=== PATIENT | female | born 1965 | race Caucasian/White ===

== ENCOUNTER 2017-11-12 08:30 | Day surgery (SDC) | payer BC ==
[~2017-11-12 08:30] MED LIST: Lactated Ringers 1,000 ML IV SCH; Sodium Chloride 0.9% 5 ML Syringe FLUSH PRN
[2017-11-12] MEDS ORDERED: Midazolam 1 MG/ML 2 ML SDV ONE (09:18)
[2017-11-12] MEDS ORDERED: fentaNYL 100 MCG/2 ML SDV ONE (09:18)
[2017-11-12] MEDS ORDERED: Propofol 200 MG/20 ML SDV ONE ×2 (09:19→10:36)
[2017-11-12] MEDS ORDERED: EPINEPHrine 1:10,000 1 MG/10 ML Syringe ONE (09:59)
[2017-11-12] MEDS ORDERED: Midazolam 1 MG/ML 2 ML SDV IV ONE (10:15)
[2017-11-12] MEDS ORDERED: fentaNYL 100 MCG/2 ML SDV IV ONE (10:15)
[2017-11-12] MEDS ORDERED: Propofol 200 MG/20 ML SDV IV ONE (10:15)
--- NOTE | 2017-11-12 10:53 | PCM.PRNOTE ---
- Free Text/Narrative Note: INFORMED CONSENT: Patient is here today for elective upper GI endoscopy. All aspects of this procedure have been discussed with the patient. All possible complications also, including possibility of perforation, infection, pain, bleeding, numbness of the throat, swallowing difficulty and unknown complications. In the event of perforation the patient may need surgical exploration to repair the defect. The patient understands fully well. Patient did not have any further questions for me at the end of my interview. The patient wishes for me to proceed. INSTRUMENT USED: Video gastroscope ANESTHESIA: [MAC] Indication: Iron deficiency anemia ASA CLASSIFICATION: [2] PROCEDURE PERFORMED: [Upper GI endoscopy and biopsy] PHARYNX: Normal. ESOPHAGUS: Normal. Proximal: Normal. Middle: Normal. Lower: Normal. GE Junction: Mild GERD is noted. Squamocolumnar junction at 35 cm. Biopsies taken.. STOMACH: Normal. Cardia: Normal. Fundus: Normal. Lesser Curvature: Normal. Greater Curvature: Normal. Antrum: Normal. Pylorus: Normal. DUODENUM: Normal. First Part: Normal. Second Part: Normal. Third Part: Normal. RETROFLEXION: Normal. BIOPSY: None. TOLERANCE: Excellent. COMPLICATIONS: None. Final diagnosis: Mild GERD at the gastroesophageal junction. Biopsy taken. Report pending. Tolerance excellent. INFORMED CONSENT: Patient is here today for elective colonoscopy. All aspects of this procedure have been discussed with the patient. All possible complications also, including possibility of perforation, infection, pain, bleeding and unknown complications. In the event of perforation patient may need to have abdominal exploration, colon resection, colostomy and even was discussed. Anesthetic complications were handled by anesthesia department. The patient understands fully well. Patient did not have any further questions for me at the end of my interview. The patient wishes for me to proceed. PREOPERATIVE DIAGNOSIS/INDICATIONS: [Iron deficiency anemia, no source of upper GI bleeding.] POSTOPERATIVE DIAGNOSIS: [Negative colonoscopy] INSTRUMENT USED: Olympus videocolonoscope. ASA CLASSIFICATION: [2] ANESTHESIA: Continuous EKG, oximetry and intermittent blood pressure and respiratory monitoring were performed throughout the procedure. IV Versed and Fentanyl were administered. PROCEDURE PERFORMED: Colonoscopy POSITIONS OF PATIENT: Left lateral. RECTUM: Normal. SIGMOID COLON: Normal. DESCENDING COLON: Normal. SPLENIC FLEXURE: Normal. TRANSVERSE COLON: Normal. HEPATIC FLEXURE: Normal. ASCENDING COLON: Normal. CECUM: Normal. ILEOCECAL VALVE: Normal. BIOPSY: None. TOLERANCE: Excellent. COMPLICATIONS: None.
== END 2017-11-12 12:15 | disposition home or self-care (01) ==
LOC: KA.SDS 08:30
PROVIDERS: ATTEND Family Medicine
DX: K29.70 Gastritis, unspecified, without bleeding (principal); K21.9 Gastro-esophageal reflux disease without esophagitis; E03.9 Hypothyroidism, unspecified; F33.41 Major depressive disorder, recurrent, in partial remission; Z88.8 Allergy status to other drugs, medicaments and biological substances
CPT/HCPCS: 43239; 45378; J2250; J2704; J3010; J7120

== ENCOUNTER 2018-05-07 14:05 | Observation (INO) | payer BC ==
--- NOTE | 2018-05-07 14:42 | EDM.PDOC ---
ED HPI GENERAL MEDICAL PROBLEM - General Chief Complaint: Chest Pain Stated Complaint: chest pain Time Seen by Provider: 05/07/18 14:15 Source of Information: Reports: Patient History Limitations: Reports: No Limitations - History of Present Illness INITIAL COMMENTS - FREE TEXT/NARRATIVE: 52 YO WF presents to ER with complaints of chest pain which began this am after getting off work. Pt reports pain was left sided with radiation to left side of neck and left arm. Pt reports associated dizziness and nausea but denies shortness of breath or diaphoresis. Pt reports more pain with movement of neck and left arm. Pt denies any PMH of CAD but does have a significant FH of CAD ( dad and cousin-). Pt reports history of irregular heart rhythm approximately 10 years ago which required no interc=vention or medications. Onset: Today Onset Date: 05/07/18 Onset Time: 07:00 Duration: Day(s): (1) Location: Reports: Chest Quality: Reports: Ache Severity: Moderate Improves with: Reports: Rest Worsens with: Reports: Movement Associated Symptoms: Reports: Chest Pain, Nausea/Vomiting. Denies: Cough, Fever /Chills, Shortness of Breath, Syncope Left Chest Pain Score (Numeric/FACES): 7 - Related Data Allergies Allergy/AdvReac Type Severity Reaction Status Date / Time lidocaine Allergy Swelling Verified 11/12/17 08:56 Home Meds: Home Meds FLUoxetine [PROzac] 60 mg PO DAILY 11/11/17 [History] Ferrous Sulfate 200 mg PO DAILY 11/11/17 [History] Gabapentin [Neurontin] 300 mg PO TID 11/11/17 [History] Levothyroxine 150 mcg PO ACBREAKFAST 11/11/17 [History] Ezetimibe 10 mg PO DAILY 05/07/18 [History] Ketorolac [Toradol] 10 mg PO QID 05/07/18 [History] Pantoprazole Sodium 40 mg PO DAILY 05/07/18 [History] Suvorexant [Belsomra] 20 mg PO DAILY 05/07/18 [History] Past Medical History Cardiovascular History: Reports: High Cholesterol Other Respiratory History: URI Gastrointestinal History: Reports: GERD SAND WHEELER History: Reports: Endometriosis, Other (See Below) Other SAND WHEELER History: D&C, full hysterectomy, with ablasion Psychiatric History: Reports: ADD, Anxiety, Depression, Eating Disorders, Mood Swings Endocrine/Metabolic History: Reports: Hypothyroidism Hematologic History: Reports: B12 Deficiency - Infectious Disease History Infectious Disease History: Reports: Chicken Pox, Measles, Mumps - Past Surgical History HEENT Surgical History: Reports: Adenoidectomy, Tonsillectomy ED ROS GENERAL - Review of Systems Review Of Systems: See Below Constitutional: Reports: No Symptoms HEENT: Reports: No Symptoms Respiratory: Reports: No Symptoms Cardiovascular: Reports: Chest Pain, Lightheadedness Endocrine: Reports: No Symptoms GI/Abdominal: Reports: Nausea. Denies: Abdominal Pain : Reports: No Symptoms Musculoskeletal: Reports: Neck Pain, Arm Pain Skin: Reports: No Symptoms Neurological: Reports: No Symptoms Psychiatric: Reports: No Symptoms Hematologic/Lymphatic: Reports: No Symptoms Immunologic: Reports: No Symptoms ED EXAM, GENERAL - Physical Exam Exam: See Below Exam Limited By: No Limitations General Appearance: Alert, WD/WN, No Apparent Distress Eye Exam: Bilateral Eye: PERRL Throat/Mouth: Normal Inspection, Normal Lips, Normal Teeth, Normal Gums, Normal Oropharynx, Normal Voice, No Airway Compromise Head: Atraumatic, Normocephalic Neck: Normal Inspection, Supple, Non-Tender, Full Range of Motion Respiratory/Chest: No Respiratory Distress, Lungs Clear, Normal Breath Sounds, No Accessory Muscle Use, Chest Non-Tender Cardiovascular: Normal Peripheral Pulses, Regular Rate, Rhythm, No Edema, No Gallop, No JVD, No Murmur, No Rub GI/Abdominal: Normal Bowel Sounds, Soft, Non-Tender, No Organomegaly, No Distention, No Abnormal Bruit, No Mass Back Exam: Normal Inspection, Full Range of Motion, NT Extremities: Normal Inspection, Normal Range of Motion, Non-Tender, Normal Capillary Refill, No Pedal Edema Neurological: Alert, Oriented, CN II-XII Intact, Normal Cognition, Normal Gait, Normal Reflexes, No Motor/Sensory Deficits Psychiatric: Normal Affect, Normal Mood Skin Exam: Warm, Dry, Intact, Normal Color, No Rash Lymphatic: No Adenopathy EKG INTERPRETATION EKG Date: 05/07/18 Time: 14:19 Rhythm: NSR Rate (Beats/Min): 72 [place]: Normal P-Wave: Present QRS: Normal ST-T: Normal QT: Normal Comparison: NA - No Prior EKG Course - Vital Signs Last Recorded V/S: Last Vital Signs Temp 36.3 C 05/07/18 14:11 Pulse 77 05/07/18 14:11 Resp 16 05/07/18 14:11 BP 113/57 L 05/07/18 15:17 Pulse Ox 98 05/07/18 14:11 - Orders/Labs/Meds Orders: Active Orders 24 hr Category Date Time Status Patient Status Manage Transfer [TRANSFER] Routine ADT 05/07/18 15:40 Ordered Patient Status [ADT] Routine ADT 05/07/18 15:41 Ordered Bedrest Bathroom Privileges [RC] ASDIRECTED Care 05/07/18 15:41 Active Cardiac Monitoring [RC] . DIRECTED Care 05/07/18 14:29 Active Cardiac Monitoring [RC] CONTINUOUS Care 05/07/18 15:42 Active EKG Documentation Completion [RC] ASDIRECTED Care 05/07/18 14:30 Active Oxygen Therapy Adult [Oxygen Therapy, ED] [RC] Care 05/07/18 14:29 Active ASDIRECTED Oxygen Therapy [RC] PRN Care 05/07/18 15:41 Active Peripheral IV Care [RC] . DIRECTED Care 05/07/18 15:46 Active Pulse Oximetry [RC] PRN Care 05/07/18 15:42 Active VTE/DVT Education [RC] PER UNIT ROUTINE Care 05/07/18 15:41 Active Vital Signs [RC] Q4H Care 05/07/18 15:41 Active 2 Gram Sodium Diet [DIET] Diet 05/07/18 Dinner Active Chest 2V [CR] Stat Exams 05/07/18 14:29 Taken BASIC METABOLIC PANEL,BMP [CHEM] AM Lab 05/08/18 05:11 Ordered CBC WITH AUTO DIFF [HEME] AM Lab 05/08/18 05:11 Ordered MAGNESIUM [CHEM] AM Lab 05/08/18 05:11 Ordered TROPONIN I [CHEM] AM Lab 05/08/18 05:11 Ordered TROPONIN I [CHEM] Routine Lab 05/07/18 21:00 Ordered Acetaminophen [Tylenol] Med 05/07/18 15:41 Active 650 mg PO Q4H PRN Aspirin [Ecotrin] Med 05/08/18 09:00 Active 325 mg PO DAILY Morphine Med 05/07/18 15:41 Active 2 mg IVPUSH Q2H PRN Nitroglycerin [Nitro-Bid 2%] Med 05/07/18 16:00 Active 1 gm TOP Q6H Ondansetron [Zofran] Med 05/07/18 15:41 Active 4 mg IV Q4H PRN Sodium Chloride 0.9% [Syrex Flush] Med 05/07/18 15:41 Active 5 ml FLUSH Q8HR PRN Peripheral IV Insertion Adult [OM.PC] Routine Oth 05/07/18 15:41 Ordered Resuscitation Status Routine Resus Stat 05/07/18 15:41 Ordered EKG 12 Lead [EK] Routine Ther 05/07/18 14:29 Ordered Medication Orders Acetaminophen (Tylenol) 650 mg PO Q4H PRN PRN Reason: Pain (Mild 1-3)/fever Aspirin (Ecotrin) 325 mg PO DAILY ASHLY Morphine Sulfate (Morphine) 2 mg IVPUSH Q2H PRN PRN Reason: Pain (severe 7-10) Nitroglycerin (Nitro-Bid 2%) 1 gm TOP Q6H ASHLY Ondansetron HCl (Zofran) 4 mg IV Q4H PRN PRN Reason: Nausea/Vomiting Sodium Chloride (Syrex Flush) 5 ml FLUSH Q8HR PRN PRN Reason: Keep Vein Open Labs: Laboratory Tests 05/07/18 05/07/18 05/07/18 Range/Units 14:25 14:25 14:25 WBC 6.5 (5.0-10.0) 10^3/uL RBC 3.91 (3.80-5.50) 10^6/uL Hgb 10.5 L (12.0-16.0) g/dL Hct 32.2 L (37.0-47.0) % MCV 82.4 (82.0-92.0) fL MCH 26.8 L (27.0-31.0) pg MCHC 32.5 (32.0-36.0) g/dL RDW 18.2 H (11.5-14.5) % Plt Count 426 H (150-300) 10^3/uL MPV 7.1 L (7.4-10.4) fL Neut % (Auto) 58.9 (50.0-70.0) % Lymph % (Auto) 29.1 (20.0-40.0) % [place] % (Auto) 7.9 (2.0-8.0) % Eos % (Auto) 2.8 (1.0-3.0) % Baso % (Auto) 1.3 H (0.0-1.0) % Neut # (Auto) 3.8 (2.5-7.0) 10^3/uL Lymph # (Auto) 1.9 (1.0-4.0) 10^3/uL [place] # (Auto) 0.5 (0.1-0.8) 10^3/uL Eos # (Auto) 0.2 (0.1-0.3) 10^3/uL Baso # (Auto) 0.1 (0.0-0.1) 10^3/uL PT 9.2 (8.9-11.4) SEC INR 0.9 (0.9-1.1) APTT 23.5 (20.8-31.2) SEC Sodium 144 (136-145) mmol/L Potassium 3.7 (3.3-5.3) mmol/L Chloride 109 (98-115) mmol/L Carbon Dioxide 24.0 (21.0-32.0) mmol/L Anion Gap 14.7 (5-15) mmol/L BUN 20 (6-25) mg/dL Creatinine 0.90 (0.51-1.17) mg/dL Est Cr Clr Drug Dosing 61.71 mL/min Estimated GFR (MDRD) > 60 mL/min Glucose 97 mg/dL Calcium 8.6 L (8.7-10.3) mg/dL Total Bilirubin 0.2 (0.2-1.0) mg/dL AST 22 (15-37) U/L ALT 24 (12-78) U/L Alkaline Phosphatase 85 (46-116) IU/L Creatine Kinase 233 (26-276) U/L CK-MB (CK-2) 2.20 (0.00-4.30) ng/mL Troponin I < 0.04 (0.00-0.070) ng/mL Total Protein 6.6 (6.4-8.2) g/dL Albumin 3.13 (3.00-4.80) g/dL Meds: Medications Generic Name Dose Route Start Last Admin Trade Name Freq PRN Reason Stop Dose Admin Acetaminophen 650 mg 05/07/18 15:41 Tylenol PO Q4H PRN Pain (Mild 1-3)/fever Aspirin 325 mg 05/08/18 09:00 Ecotrin PO DAILY ASHLY Morphine Sulfate 2 mg 05/07/18 15:41 Morphine IVPUSH Q2H PRN Pain (severe 7-10) Nitroglycerin 1 gm 05/07/18 16:00 Nitro-Bid 2% TOP Q6H ASHLY Ondansetron HCl 4 mg 05/07/18 15:41 Zofran IV Q4H PRN Nausea/Vomiting Sodium Chloride 5 ml 05/07/18 15:41 Syrex Flush FLUSH Q8HR PRN Keep Vein Open Discontinued Medications Generic Name Dose Route Start Last Admin Trade Name Freq PRN Reason Stop Dose Admin Aspirin 324 mg 05/07/18 14:49 05/07/18 15:07 Aspirin PO 05/07/18 14:50 324 mg ONETIME ONE Administration Morphine Sulfate 4 mg 05/07/18 15:24 05/07/18 15:35 Morphine IVPUSH 05/07/18 15:25 4 mg ONETIME ONE Administration Nitroglycerin 0.4 mg 05/07/18 14:49 05/07/18 15:17 Nitrostat SL 05/07/18 14:50 0.4 mg ONETIME ONE Administration Ondansetron HCl 4 mg 05/07/18 15:24 05/07/18 15:36 Zofran IVPUSH 05/07/18 15:25 4 mg ONETIME ONE Administration - Radiology Interpretation Free Text/Narrative:: CXR- NAD Departure - Departure Time of Disposition: 15:33 Disposition: Refer to Observation Condition: Fair Clinical Impression: Atypical chest pain Referrals: Allison Decker PA-C [Primary Care Provider] - Forms: ED Department Discharge - My Orders Last 24 Hours: My Active Orders 05/07/18 14:29 Cardiac Monitoring [RC] . DIRECTED Oxygen Therapy Adult [Oxygen Therapy, ED] [RC] ASDIRECTED Chest 2V [CR] Stat EKG 12 Lead [EK] Routine 05/07/18 14:30 EKG Documentation Completion [RC] ASDIRECTED 05/07/18 15:40 Patient Status Manage Transfer [TRANSFER] Routine 05/07/18 15:41 Patient Status [ADT] Routine Bedrest Bathroom Privileges [RC] ASDIRECTED Oxygen Therapy [RC] PRN VTE/DVT Education [RC] PER UNIT ROUTINE Vital Signs [RC] Q4H Acetaminophen [Tylenol] 650 mg PO Q4H PRN Morphine 2 mg IVPUSH Q2H PRN Ondansetron [Zofran] 4 mg IV Q4H PRN Sodium Chloride 0.9% [Syrex Flush] 5 ml FLUSH Q8HR PRN Peripheral IV Insertion Adult [OM.PC] Routine Resuscitation Status Routine 05/07/18 15:42 Cardiac Monitoring [RC] CONTINUOUS Pulse Oximetry [RC] PRN 05/07/18 15:46 Peripheral IV Care [RC] . DIRECTED 05/07/18 16:00 Nitroglycerin [Nitro-Bid 2%] 1 gm TOP Q6H 05/07/18 21:00 TROPONIN I [CHEM] Routine 05/07/18 Dinner 2 Gram Sodium Diet [DIET] 05/08/18 05:11 BASIC METABOLIC PANEL,BMP [CHEM] AM CBC WITH AUTO DIFF [HEME] AM MAGNESIUM [CHEM] AM TROPONIN I [CHEM] AM 05/08/18 09:00 Aspirin [Ecotrin] 325 mg PO DAILY - Assessment/Plan Last 24 Hours: My Active Orders 05/07/18 14:29 Cardiac Monitoring [RC] . DIRECTED Oxygen Therapy Adult [Oxygen Therapy, ED] [RC] ASDIRECTED Chest 2V [CR] Stat EKG 12 Lead [EK] Routine 05/07/18 14:30 EKG Documentation Completion [RC] ASDIRECTED 05/07/18 15:40 Patient Status Manage Transfer [TRANSFER] Routine 05/07/18 15:41 Patient Status [ADT] Routine Bedrest Bathroom Privileges [RC] ASDIRECTED Oxygen Therapy [RC] PRN VTE/DVT Education [RC] PER UNIT ROUTINE Vital Signs [RC] Q4H Acetaminophen [Tylenol] 650 mg PO Q4H PRN Morphine 2 mg IVPUSH Q2H PRN Ondansetron [Zofran] 4 mg IV Q4H PRN Sodium Chloride 0.9% [Syrex Flush] 5 ml FLUSH Q8HR PRN Peripheral IV Insertion Adult [OM.PC] Routine Resuscitation Status Routine 05/07/18 15:42 Cardiac Monitoring [RC] CONTINUOUS Pulse Oximetry [RC] PRN 05/07/18 15:46 Peripheral IV Care [RC] . DIRECTED 05/07/18 16:00 Nitroglycerin [Nitro-Bid 2%] 1 gm TOP Q6H 05/07/18 21:00 TROPONIN I [CHEM] Routine 05/07/18 Dinner 2 Gram Sodium Diet [DIET] 05/08/18 05:11 BASIC METABOLIC PANEL,BMP [CHEM] AM CBC WITH AUTO DIFF [HEME] AM MAGNESIUM [CHEM] AM TROPONIN I [CHEM] AM 05/08/18 09:00 Aspirin [Ecotrin] 325 mg PO DAILY Assessment:: 1. Left sided chest pain Plan: 1. Admit 23 hour obs- Chest pain- Discussed with Dr Brown 2. nitro/ASA/oxygen 3. supportive care
[2018-05-07] MEDS ORDERED: Aspirin 81 MG Tab.Chew PO ONE (14:49)
[2018-05-07] MEDS ORDERED: Nitroglycerin 0.4 MG Tab.SL SL ONE (14:49)
[2018-05-07 15:08] LABS: ANION GAP 14.7 mmol/L (5-15); CHLORIDE,CL 109 mmol/L (98-115); SODIUM,NA 144 mmol/L (136-145)
[2018-05-07] MEDS ORDERED: Morphine 4 MG/ML Syringe IVPUSH ONE (15:24)
[2018-05-07] MEDS ORDERED: Ondansetron 4 MG/2 ML SDV IVPUSH ONE (15:24)
[2018-05-07] MEDS ORDERED: Sodium Chloride 0.9% 5 ML Syringe FLUSH PRN (15:41)
[2018-05-07] MEDS ORDERED: Morphine 2 MG/ML Syringe IVPUSH PRN (15:41)
[2018-05-07] MEDS ORDERED: Ondansetron 4 MG/2 ML SDV IV PRN (15:41)
[2018-05-07] MEDS ORDERED: Nitroglycerin 0.4 MG Tab.SL SL PRN (17:22)
[2018-05-07] MEDS ORDERED: EPINEPHrine 1:10,000 1 MG/10 ML Syringe IVPUSH PRN (17:22)
[2018-05-07] MEDS ORDERED: Atropine 0.1 MG/ML 10 ML Syringe IVPUSH PRN (17:22)
[2018-05-07] MEDS: Nitroglycerin 2% Oint 1 GM UD Packet TOP SCH ×2 (17:44→22:17)
[2018-05-07] MEDS: Acetaminophen 325 MG Tab PO PRN (20:43)
[2018-05-08] MEDS: Acetaminophen 325 MG Tab PO PRN (02:55)
[2018-05-08] MEDS ORDERED: Pantoprazole 40 MG Tab.CR PO SCH (07:00)
[2018-05-08] MEDS ORDERED: Levothyroxine 50 MCG Tab PO SCH (07:30)
[2018-05-08] MEDS ORDERED: Aspirin 81 MG Tab.EC PO SCH (08:00)
[2018-05-08 08:02] LABS: ANION GAP 11.5 mmol/L (5-15); CHLORIDE,CL 107 mmol/L (98-115); SODIUM,NA 142 mmol/L (136-145)
[2018-05-08] MEDS ORDERED: Gabapentin 300 MG Cap PO SCH (09:00)
[2018-05-08] MEDS ORDERED: FLUoxetine 10 MG Cap PO SCH (09:00)
[2018-05-08] MEDS ORDERED: SUVOREXANT 20 MG PO SCH (09:00)
[2018-05-08] MEDS ORDERED: Ezetimibe 10 MG Tab PO SCH (09:00)
[2018-05-08] MEDS ORDERED: FERROUS SULFATE 200 MG PO SCH (09:00)
[2018-05-08] MEDS ORDERED: Aspirin 325 MG Tab.EC PO SCH (09:00)
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
== END 2018-05-08 12:36 | disposition home or self-care (01) ==
LOC: KA.ED 14:05 → KA.MS 15:41
PROVIDERS: ADMIT Physician Assistant Medical; ATTEND Family Medicine
DX: R07.9 Chest pain, unspecified (principal); R42 Dizziness and giddiness; R11.0 Nausea; K44.9 Diaphragmatic hernia without obstruction or gangrene; E03.9 Hypothyroidism, unspecified; E53.8 Deficiency of other specified B group vitamins; M46.92 Unspecified inflammatory spondylopathy, cervical region; F41.9 Anxiety disorder, unspecified; F32.9 Major depressive disorder, single episode, unspecified; Z79.899 Other long term (current) drug therapy; Z79.82 Long term (current) use of aspirin; Z88.7 Allergy status to serum and vaccine
CPT/HCPCS: 36415; 71046; 72040; 80048; 80053; 82550; 82553; 83735; 84484; 85025; 85610; 85730; 93005; 96374; 96375; 99285; A9270-GY; G0378; J2270; J2405

== ENCOUNTER 2019-12-15 07:41 | Day surgery (SDC) | payer BC, OTHER ==
[2019-12-15] MEDS ORDERED: Sodium Chloride 0.9% 10 ML Syringe FLUSH PRN (08:00)
[2019-12-15] MEDS ORDERED: EPINEPHrine 1:10,000 1 MG/10 ML Syringe ONE (08:45)
[2019-12-15] MEDS ORDERED: Lactated Ringers 1,000 ML IV SCH (09:00)
[2019-12-15] MEDS ORDERED: Midazolam 1 MG/ML 2 ML SDV IV ONE (09:10)
[2019-12-15] MEDS ORDERED: Lidocaine 2% 100 MG/5 ML Syringe IVPUSH ONE (09:10)
[2019-12-15] MEDS ORDERED: Propofol 200 MG/20 ML SDV IV ONE (09:10)
[2019-12-15] MEDS ORDERED: Lidocaine 2% 100 MG/5 ML Syringe ONE ×3 (09:12→11:39)
[2019-12-15] MEDS ORDERED: Propofol 200 MG/20 ML SDV ONE (09:12)
[2019-12-15] MEDS ORDERED: Midazolam 1 MG/ML 2 ML SDV ONE (09:12)
--- NOTE | 2019-12-15 09:47 | PCM.OPNOTE ---
- General Post-Op/Procedure Note Date of Surgery/Procedure: 12/15/19 Operative Procedure(s): Upper gastrointestinal endoscopy and biopsies. Anesthesia Technique: MAC Primary Surgeon: Haydee Valdez Condition: Good Free Text/Narrative:: INFORMED CONSENT: Patient is here today for elective upper GI endoscopy. All aspects of this procedure have been discussed with the patient. All possible complications also, including possibility of perforation, infection, pain, bleeding, numbness of the throat, swallowing difficulty and unknown complications. In the event of perforation the patient may need surgical exploration to repair the defect. The patient understands fully well. Patient did not have any further questions for me at the end of my interview. The patient wishes for me to proceed. INSTRUMENT USED: Video gastroscope ANESTHESIA: [MAC] ASA CLASSIFICATION: 2 PROCEDURE PERFORMED: Upper gastrointestinal endoscopy with biopsies. PHARYNX: Normal. ESOPHAGUS: Normal. Proximal: Normal. Middle: Normal. Lower: Abnormal. See below. GE Junction: Evidence for moderate reflux esophagitis is noted. Biopsies were taken from the inflamed areas to rule out varices esophagitis.. STOMACH: Normal. Cardia: Normal. Fundus: Normal. Lesser Curvature: Normal. Greater Curvature: Normal. Antrum: Normal. Pylorus: Normal. DUODENUM: Normal. First Part: Normal. Second Part: Normal. Third Part: Normal. RETROFLEXION: Normal. BIOPSY: From the lower end of the esophagus at the GE junction.. TOLERANCE: Excellent. COMPLICATIONS: None.
== END 2019-12-15 10:45 | disposition home or self-care (01) ==
LOC: KA.SDS 07:41
PROVIDERS: ATTEND Family Medicine
DX: K21.0 Gastro-esophageal reflux disease with esophagitis (principal); D50.9 Iron deficiency anemia, unspecified; F41.9 Anxiety disorder, unspecified; F33.41 Major depressive disorder, recurrent, in partial remission; E03.9 Hypothyroidism, unspecified; E66.9 Obesity, unspecified; Z68.36 Body mass index [BMI] 36.0-36.9, adult; Z79.82 Long term (current) use of aspirin; Z79.899 Other long term (current) drug therapy; Z88.8 Allergy status to other drugs, medicaments and biological substances; Z91.048 Other nonmedicinal substance allergy status
CPT/HCPCS: J2001; J2250; J2704; J7120